=== PATIENT | female | born 1930 | race Caucasian/White ===

== ENCOUNTER 2017-04-25 19:21 | Emergency (ER) | payer MEDICARE ==
[~2017-04-25] VITALS: Ht 160 cm; Wt 81.1 kg
[2017-04-25 19:25] VITALS: BP 142/63; PULSE 87; RESP 16; TEMP 98.4; O2SAT 96
[2017-04-25] MEDS ORDERED: LISI-515 PO (19:40)
[2017-04-25] MEDS ORDERED: [UNRECOGNIZED DRUG - REMARK] (19:40)
[2017-04-25] MEDS ORDERED: PANT40TA3 PO (19:40)
[2017-04-25] MEDS ORDERED: FLUO40CA PO (19:40)
[2017-04-25] MEDS ORDERED: DIPH25TA31 (19:40)
[2017-04-25] MEDS ORDERED: SITA50 PO (19:40)
[2017-04-25] MEDS ORDERED: CARV25TA PO (19:40)
[2017-04-25] MEDS ORDERED: ROSU1TAB8 PO (19:40)
--- NOTE | 2017-04-25 20:21 | RADRPT ---
EXAM DATE/TIME: 04/25/2017 19:57 [facility] COMPARISON: No previous studies available for comparison. INDICATIONS : Left lateral foot and ankle pain after tripping and falling today. MEDICAL HISTORY : None. SURGICAL HISTORY : None. ENCOUNTER: Initial ACUITY: 1 day PAIN SCORE: 5/10 LOCATION: Left ankle. FINDINGS: Three view exam was performed of the left ankle. The bony structures are in normal alignment. No ev idence of fracture, dislocation, or soft tissue swelling. The ankle mortise is intact. No radiopaqu e foreign bodies are seen. Bony mineralization is normal. CONCLUSION: Unremarkable examination of the left ankle. Karl Hazel MD on April 25, 2017 at 20:19 Board Certified Radiologist. This report was verified electronically.
--- NOTE | 2017-04-25 20:22 | RADRPT ---
EXAM DATE/TIME: 04/25/2017 19:57 [facility] COMPARISON: No previous studies available for comparison. INDICATIONS : Left lateral foot and ankle pain after tripping and falling today. MEDICAL HISTORY : None. SURGICAL HISTORY : None. ENCOUNTER: Initial ACUITY: 1 day PAIN SCORE: 5/10 LOCATION: Left foot. FINDINGS: Three view examination of the left foot demonstrates no soft tissue swelling, dislocation, or fractur e. The tarsal bones appear intact. The interphalangeal and metatarsophalangeal joints are intact. The calcaneus is intact. Bony mineralization is normal. CONCLUSION: Unremarkable examination of the left foot. Karl Hazel MD on April 25, 2017 at 20:20 Board Certified Radiologist. This report was verified electronically.
--- NOTE | 2017-04-25 20:41 | PD ---
HPI Chief Complaint: Fall Time Seen by Provider: 19:33 Travel History International Travel<30 days: No Contact w/Intl Traveler<30days: No Traveled to known affect area: No History of Present Illness HPI 87-year-old female here with left ankle pain. Patient had a mechanical trip and fall was morning injuring the ankle. Denies head injury or loss of consciousness. Patient is not anticoagulated. Patient denies no other injuries. She denies paresthesia or weakness of the extremity. Pain is localized to the ankle worse with movement and relieved with rest. Symptom severity is moderate. PFSH Past Medical History Cancer: Yes (Lymphoma) Diabetes: Yes Patient Takes Glucophage: No Diminished Hearing: No Tetanus Vaccination: Unknown Influenza Vaccination: No ?: Not Menopausal: Yes Social History Alcohol Use: No Tobacco Use: No Substance Use: No Allergies-Medications (Allergen,Severity, Reaction): Coded Allergies: Penicillins (Verified Allergy, Severe, Anaphylaxis, 04/25/17) Reported Meds & Prescriptions Reported Meds & Active Scripts Active Reported Pantoprazole (Pantoprazole Sodium) 40 Mg Tab 40 Mg PO DAILY Rosuvastatin (Rosuvastatin Calcium) 20 Mg Tab 20 Mg PO DAILY Lisinopril 20 Mg Tab 20 Mg PO DAILY Acetaminophen Pm Caplet (Acetaminophen/Diphenhydramine) 500 Mg-25 Mg Tablet Fluoxetine (Fluoxetine HCl) 40 Mg Cap 40 Cap PO DAILY Carvedilol 25 Mg Tab 25 Mg PO BID ["Insulin Pen"] Januvia (Sitagliptin Phosphate) 50 Mg Tab 50 Mg PO DAILY Review of Systems Except as stated in HPI: all other systems reviewed are Neg General / Constitutional: No: Fever Eyes: No: Visual changes HENT: No: Headaches Cardiovascular: No: Chest Pain or Discomfort Respiratory: No: Shortness of Breath Gastrointestinal: No: Abdominal Pain Genitourinary: No: Dysuria Physical Exam Narrative GENERAL: Alert well-appearing female SKIN: Warm and dry. HEAD: Normocephalic. Atraumatic EYES: No scleral icterus. No injection or drainage. NECK: Supple, trachea midline. No cervical midline tenderness. CARDIOVASCULAR: Regular rate and rhythm without murmurs, gallops, or rubs. RESPIRATORY: Breath sounds equal bilaterally. No accessory muscle use. GASTROINTESTINAL: Abdomen soft, non-tender, nondistended. MUSCULOSKELETAL: No cyanosis. Left lower extremity: Notable swelling, tenderness, ecchymosis to the lateral malleolus and dorsal aspect of the foot. The ankle is stable. [place]. 2+ dorsal pedis pulses. Normal sensation. Brisk cap refill. BACK: Nontender without obvious deformity. No CVA tenderness. Data Data Last Documented VS Vital Signs Date Time Temp Pulse Resp B/P (MAP) Pulse Ox O2 Delivery O2 Flow Rate FiO2 04/25/17 19:25 98.4 87 16 142/63 (89) 96 Orders Orders Foot, Complete (Poz2ifz) (04/25/17 ) Ankle, Complete ([id number]) (04/25/17 ) Splint Or Brace Apply/Monitor (04/25/17 20:35) MDM Medical Decision Making Medical Screen Exam Complete: Yes Emergency Medical Condition: Yes Differential Diagnosis Ankle sprain, strain, fracture, metatarsal fracture Narrative Course 87-year-old female here with left ankle and foot pain after a mechanical fall today. The joint is stable. The extremity is neurovascularly intact. X-rays negative for fracture. Patient will be treated for ankle sprain Diagnosis Primary Impression: Ankle sprain Qualified Codes: S93.402A - Sprain of unspecified ligament of left ankle, initial encounter Referrals: Primary Care Physician Additional Instructions: Ice and elevate the extremity. Where the Panda wrap and ankle stirrup splint as directed. Use a cane to help with weightbearing. Take [id number] Tylenol and ibuprofen as needed for pain. Disposition: 01 DISCHARGE HOME Condition: Stable Tarah Miller Apr 25, 2017 20:41
== END 2017-04-25 21:05 | disposition home or self-care (01) ==
LOC: PHEFT 19:21
DX: S93.402A Sprain of unspecified ligament of left ankle, initial encounter (principal); E11.9 Type 2 diabetes mellitus without complications; C85.90 Non-Hodgkin lymphoma, unspecified, unspecified site; Z88.0 Allergy status to penicillin; W01.0XXA Fall on same level from slipping, tripping and stumbling without subsequent striking against object, initial encounter
CPT/HCPCS: 73610; 73630; 99283; L1906